=== PATIENT | female | born 1950 ===

== ENCOUNTER 2019-07-08 02:20 | Emergency (ER) | payer OTHER ==
[~2019-07-08] VITALS: Ht 167.6 cm; Wt 68.8 kg
--- NOTE | 2019-07-08 02:39 | NUR ---
TIME OF [address] PUGH
--- NOTE | 2019-07-08 02:42 | NUR ---
JERMAN [phone] PUGH. KELSIE IN CONFERENCE CALL WITH
[2019-07-08] MEDS ORDERED: SODIUM BICARB 8.4%, 50ML SYRINGE ONE (02:45)
[2019-07-08] MEDS ORDERED: ATROPINE SYRINGE 0.1 MG/ML, 10ML ONE (02:45)
[2019-07-08] MEDS ORDERED: CODE BLUE RESPONSE XX ONE (02:45)
[2019-07-08] MEDS ORDERED: EPINEPHRINE SYRINGE 0.1 MG/ML, 10ML ONE (02:45)
[2019-07-08] MEDS ORDERED: CALCIUM CHLORIDE 10%, 10ML SYR ONE (02:45)
--- NOTE | 2019-07-08 02:49 | NUR ---
REPORT GIVEN TO LUDIVNIA AT THE [facility]. SHE STATES SHE WILL COME TO THE HOSPITAL.
--- NOTE | 2019-07-08 02:49 | NUR ---
DARCY JERNIGAN IS THE
--- NOTE | 2019-07-08 02:54 | NUR ---
[facility]NG WITH [employer] WAS CALLED AND INFO GIVEN. CASE # [id number] WILL NOT BE A TISSUE DONOR.
--- NOTE | 2019-07-08 03:16 | NUR ---
LUDIVINA WITH THE [facility] IS NOW AT BEDSIDE.
--- NOTE | 2019-07-08 03:17 | NUR ---
PER LUDIVINA PLEASE PLACE BODY IN [place].
--- NOTE | 2019-07-08 04:17 | NUR ---
AWAITING ARRIVAL OF FAMILY. PT HAS BEEN PLACED IN BODY BAG X2. TOE TAG AND BODY BAG STICKERED.
--- NOTE | 2019-07-08 04:52 | NUR ---
CALLED FAMILY FOR ETA. NO ANSWER.
--- NOTE | 2019-07-08 05:17 | NUR ---
LUDIVINA FROM THE [facility] CALLED BACK ASKING IF FAMILY HAD ARRIVED YET. FAMILY HAS NOT ARRIVED.
--- NOTE | 2019-07-08 05:25 | NUR ---
CALLED FAMILY AGAIN. NO ANSWER.
--- NOTE | 2019-07-08 05:46 | NUR ---
PER DISCUSSION WITH [facility] ABOUT PTS BELONGINGS- PT HAS ONE RING AND ONE HAIR CLIP. THESE WERE PLACED IN A STICKERED BIO BAG AND PLACED IN BODY BAG.
--- NOTE | 2019-07-08 06:01 | NUR ---
PATIENTS FAMILY ARRIVED
--- NOTE | 2019-07-08 06:01 | NUR ---
LUDIVINA FROM [facility] FAXED PATIENT INFORMATION WITH CORRECT SPELLING OF NAME.
--- NOTE | 2019-07-08 06:29 | NUR ---
PTS FAMILY ARRIVED AND STATES NAME SPELLED WRONG. CORRECTION MADE WITH REG. [facility] INFORMED. [facility] FAX COMPLETED BY AND THIS RN AND FAXED BACK TO [facility] OFFICE. POC DISCUSSED. FAMILY WISHES FOR HER BODY TO BE TRANSPORTED TO THE [facility] ONCE THE [facility] OFFICE HAS COMPLETED THEIR ASSESSMENT. THIS WAS DISCUSSED WITH [facility] AND THE [facility]. PER [facility] AND [facility] RECOMMENDATIONS, FAMILY WAS GIVEN MORTUARY SELECTION SHEET AND INFORMED TO CALL AROUND TO SEE WHO CAN ARRANGE THIS. PTS BELONGINGS OF ONE RING AND ONE HAIR CLIP WAS HANDED TO PTS . FAMILY BEING GIVEN PRIVATE TIME WITH THE PATIENT AT THIS TIME. FAMILY AWARE TO NOT REMOVE ANY OF THE MEDICAL DEVICES ON OR IN THE PATIENT. TISSUES GIVEN. THEY DENY FURTHER NEEDS AT THIS TIME.
--- NOTE | 2019-07-08 09:50 | NUR ---
PT TO THE [place] AT THIS TIME. UNABLE TO REACH FAMILY, JERMAN, AFTER TWO ATTEMPTS WITH MESSAGES LEFT NOTIFYING JERMAN THAT WE ARE MOVING THE BODY TO THE [place] WE ARE UNABLE TO WAIT ANY LONGER FOR ANY MORE FAMILY TO ARRIVE.
--- NOTE | 2019-07-08 10:01 | NUR ---
CALLED [facility] AT [phone] TO NOTIFY THEM THAT PATIENT'S BODY HAS BEEN MOVED TO THE [facility], THEY WILL BE THE TRANSPORTATION FOR BODY TO THE [facility]ICE.
== END 2019-07-08 10:00 | disposition expired ==
LOC: EDBD 02:20 → EDSEX 02:20 → ED 02:40
DX: J96.91 Respiratory failure, unspecified with hypoxia (principal); I46.2 Cardiac arrest due to underlying cardiac condition
CPT/HCPCS: 31500; 92950; 99285; J0461